=== PATIENT | male | born 1990 | race Caucasian/White ===

== ENCOUNTER 2021-06-27 14:28 | Emergency (ER) | payer SELFPAY ==
[2021-06-27 14:33] VITALS: BP 149/77; PULSE 91; TEMP 98.4; BMI 33.8
[2021-06-27] MEDS ORDERED: KETOROLAC TROMETHAMINE 30 MG/1 ML VIAL IM ONE (15:13)
[2021-06-27] MEDS ORDERED: morphine CARPU-JECT 4 MG/1 ML DISP.SYRIN IVPUSH ONE ×2 (15:30→17:07)
[2021-06-27] MEDS ORDERED: morphine SULFATE 4 MG/ML VIAL ONE ×2 (16:02→17:09)
[2021-06-27 16:08] LABS: BASO % 0.7 % (0-2.0); EOS % 0.7 % (0-4.5); HEMATOCRIT 37.4 % (35.4-49); HEMOGLOBIN 12.9 GM/dL (11.7-16.9); LYMPH % 21.2 % (8-40); MCHC 34.4 g/dl (32.0-35.9); MEAN CELL VOLUME 90.1 fl (80-96); MEAN PLT VOLUME 8.5 fl (7.5-11.1); MONO % 8.9 % (3.8-10.2); NEUT % 68.5 % (42.8-82.8); PLATELET COUNT 252 10^3/uL (134-434); RBC 4.16 M/mm3 (4.00-5.60); RDW 15.4 % (11.9-15.9); WHITE BLOOD COUNT 8.4 K/mm3 (4.0-10.0)
[2021-06-27 16:15] LABS: INR 1.05 (0.83-1.09); PROTHROMBIN TIME (PATIENT) 12.9 SEC (9.7-13.0)
[2021-06-27 16:18] LABS: ACTIVATED PTT 34.8 SECONDS (25.2-36.5)
[2021-06-27 16:35] LABS: CALCIUM 8.3 mg/dL (8.5-10.1)
[2021-06-27 16:36] LABS: ALBUMIN 3.9 g/dl (3.4-5.0); BLOOD UREA NITROGEN 10.6 mg/dL (7-18)
[2021-06-27 16:39] LABS: CREATININE 0.7 mg/dL (0.55-1.3)
[2021-06-27 16:40] LABS: BILIRUBIN,TOTAL 0.3 mg/dL (0.2-1)
[2021-06-27 16:41] LABS: TOT PROT 7.5 g/dl (6.4-8.2)
== END 2021-06-27 18:10 | disposition home or self-care (01) ==
LOC: JERFT 14:28
PROC: 3E0233Z Introduction of Anti-inflammatory into Muscle, Percutaneous Approach (ICD-10-PCS; principal; 2021-06-27)
PROC: 3E033GC Introduction of Other Therapeutic Substance into Peripheral Vein, Percutaneous Approach (ICD-10-PCS; 2021-06-27)
PROC: 3E033GC Introduction of Other Therapeutic Substance into Peripheral Vein, Percutaneous Approach (ICD-10-PCS; 2021-06-27)
DX: S82.202A Unspecified fracture of shaft of left tibia, initial encounter for closed fracture (principal); W19.XXXA Unspecified fall, initial encounter; Y92.9 Unspecified place or not applicable
CPT/HCPCS: 36415; 73590-TC-LT-FY; 73610-TC-LT-FY; 73630-TC-LT; 80053; 85025; 85610; 85730; 86850; 86900; 86901; 99285-25; C9803; U0003; U0005